=== PATIENT | female | born 1990 | race Caucasian/White ===

== ENCOUNTER 2017-11-29 14:37 | Emergency (ER) | payer OTHER ==
[~2017-11-29] VITALS: Ht 160 cm; Wt 64.4 kg
[~2017-11-29 14:37] MED LIST: CARAFATE1 GM/10 ML PO; CITALOPRAM HBR20 MG PO; CITALOPRAM HBR40 MG PO; ESTRADIOL1 MG PO; FAMOTIDINE40 MG PO; LAMOTRIGINE200 MG PO; LORAZEPAM0.5 MG PO; MIRTAZAPINE15 MG PO; NAPROXEN250 MG PO; PANTOPRAZOLE SO40 MG PO; VYVANSE30 MG PO
[2017-11-29 17:33] LABS: BILIRUBIN,URINE NEGATIVE (NEGATIVE); CLARITY,URINE CLEAR (CLEAR); COLOR,URINE YELLOW (YELLOW); KETONES,URINE NEGATIVE (NEGATIVE); LEUKOCYTE ESTERASE ,URINE 2+ (NEGATIVE); NITRITE,URINE NEGATIVE (NEGATIVE); PROTEIN,URINE DIPSTICK NEGATIVE (NEGATIVE); URINE UROBILINOGEN 0.2 mg/dL (0.2 - 1)
[2017-11-29] MEDS ORDERED: NITROFURANTOIN MACROCRYSTALS 100 MG CAP PO ONE (17:45)
[2017-11-29 17:49] LABS: BACTERIA,URINE FEW /HPF; EPITHELIAL CELLS,URINE FEW /LPF
[2017-11-29 18:54] VITALS: BP 101/70
== END 2017-11-29 19:06 | disposition home or self-care (01) ==
LOC: ER 14:37
DX: B37.3 Candidiasis of vulva and vagina (principal); N30.90 Cystitis, unspecified without hematuria
CPT/HCPCS: 81001; 99283

== ENCOUNTER 2017-12-09 15:10 | Emergency (ER) | payer OTHER ==
[~2017-12-09] VITALS: Ht 160 cm; Wt 64.4 kg
[2017-12-09] MEDS ORDERED: SODIUM CHLORIDE 0.9% 1000ML 1,000 ML IV STA ×2 (15:12→17:41)
[2017-12-09] MEDS ORDERED: MORPHINE SULFATE 4 MG/ML SYR IV STA (15:12)
[2017-12-09] MEDS ORDERED: ONDANSETRON HCL INJ 2 MG/ML VIAL IV SCH (15:12)
--- OUTSIDE RECORDS SUMMARY | 2017-12-09 15:13 | XMS REPORT | Continuity of Care Document ---
Author Author [facility] Organization [facility] Address [address] [place] [address] Phone Unavailable Care Team Providers Care Ict Programmer Name Role Phone SEMAJ AUSTIN MD PCP Insurance Providers Guarantor Mona Rose Address [address] [place] [address] Email [email or web address] Payer [facility] Policy Number [id number] Subscriber's Name Mona Rose Relationship 18 Self / Same As Patient Group Number [id number] Group Name UNEMPLOYED Effective Date 17 Expiration Date 15 Advance Directives Directive Response Recorded Date/Time Does the patient have an advance directive? No 11/29/17 3:41pm If yes, [facility]? No 02/20/14 9:53pm If not on file with [facility] will patient provide a copy? No 11/29/17 3:41pm Do you have a Directive to Physician? No 11/29/17 3:41pm Do you have a Medical Power of Roller Inspector And Mender? No 11/29/17 3:41pm Do you have an out of hospital Do Not Resuscitate Order? No 11/29/17 3:41pm Do you have any special needs we should be aware of? No 11/29/17 3:41pm Do you have a support person here with you today? Yes 03/08/18 3:41pm Did patient receive Notice of Privacy Practices? Yes 11/29/17 3:41pm Did patient receive patient rights and responsibilities? Yes 11/29/17 3:41pm Problems Medical Problem Onset Date Status Upper GI bleed Unknown Medications Current Home Medications Medication Dose Units Route Directions Days Qty Instructions Start Date Citalopram Hydrobromide (Citalopram Hbr) 40 Mg Tablet 40 Mg Oral Daily Estradiol 1 Mg Tab 2 Mg Oral Daily 30 Tab Lorazepam 0.5 Mg Tablet 0.5 Mg Oral Twice A Day Mirtazapine 15 Mg Tab 15 Mg Oral Bedtime Pantoprazole Sodium (Protonix) 40 Mg Tablet.dr 40 Mg Oral Daily Sucralfate (Carafate) 1 Gm/10 Ml Oral.susp 1 Gm Oral Twice A Day TAKE EVERY MORNING AND AT BED TIME Past Home Medications Medication Directions Ordered Status Citalopram Hydrobromide (Citalopram Hbr) 20 Mg Tablet, 40 Mg Oral Daily Discontinued Famotidine 40 Mg Tablet, 40 Mg Oral Bedtime Discontinued Lamotrigine 200 Mg Tablet, 200 Mg Oral Twice A Day Discontinued Lisdexamfetamine Dimesylate (Vyvanse) 30 Mg Capsule, 30 Mg Oral Daily Discontinued Lorazepam 0.5 Mg Tablet, 0.25 Mg Oral Three Times A Day for Anxiety Discontinued Naproxen 250 Mg Tablet, 500 Mg Oral Twice A Day Discontinued Social History Social History Problem Response Recorded Date/Time Onset Date Status Hx Psychiatric Problems Yes 04/04/2017 10:11pm Not Applicable Not Applicable Hx Eating Disorder No 04/04/2017 10:11pm Not Applicable Not Applicable Hx Substance Use Disorder No 04/04/2017 10:11pm Not Applicable Not Applicable Hx Depression Yes 04/04/2017 10:11pm Not Applicable Not Applicable Hx Alcohol Use No 04/04/2017 10:11pm Not Applicable Not Applicable Hx Substance Use Treatment No 04/04/2017 10:11pm Not Applicable Not Applicable Hx Physical Abuse No 04/04/2017 10:11pm Not Applicable Not Applicable Smoking Status Start Date Stop Date Former smoker Hospital Discharge Instructions No hospital discharge instruction information available. Plan of Care Discharge Date 11/29/17 7:06pm Disposition HOME, SELF-CARE Condition at Discharge Stable Instructions/Education Provided Abdominal Pain - Adult Urinary Tract Infection - Women Yeast Infection Forms Provided Work/School Excuse Prescriptions See Medication Section Referrals SEMAJ AUSTIN MD Address: [address] [place] [id number] Additional Instructions/Education Please take medication as directed. Keep December 13 appointment with your Gynocologist. Return to the ER for any shortness of breath, chest pain, abdominal pain, or any new concerns. Functional Status No functional status information available. Allergies, Adverse Reactions, Alerts Allergen Type Severity Reaction Status Last Updated Guaifenesin Allergy Unknown Active 11/29/17 Immunizations No immunization information available. Vital Signs Acute Vital Signs Vital Response Date/Time Temperature (Fahrenheit) 98.1 degrees F (97.6 - 99.5) 11/29/2017 6:54pm Pulse Pulse Rate (adult) 89 bpm (60 - 90) 11/29/2017 6:54pm Respiratory Rate 18 bpm (12 - 24) 11/29/2017 6:54pm Blood Pressure 101/70 mm Hg 11/29/2017 6:54pm Height 5 ft 3 in 11/29/2017 3:02pm Weight 142 lb 11/29/2017 3:02pm Body Mass Index 25.2 kg/m^2 11/29/2017 3:02pm Results Laboratory Results Test Name Result Units Flags Reference Collection Date/Time Result Date/ Time Comments White Blood Count 3.21 x10e3/uL L 4.8-10.8 04/07/2017 7:04/07/2017 7:46am Red Blood Count 3.88 x10e6/uL 3.6-5.1 04/07/2017 7:04/07/2017 7: 46am Hemoglobin 10.6 g/dL L 12.0-16.0 04/07/2017 7:04/07/2017 7:46am Hematocrit 32.2 % L 34.2-44.1 04/07/2017 7:04/07/2017 7:46am Mean Corpuscular Volume 83.0 fL 81-99 04/07/2017 7:04/07/2017 7: 46am Mean Corpuscular Hemoglobin 27.3 pg L 28-32 04/07/2017 7:2016 7:46am Mean Corpuscular Hemoglobin Concent 32.9 g/dL 31-35 04/07/2017 7:04/07/2017 7:46am Red Cell Distribution Width 14.5 % H 11.7-14.4 04/07/2017 7:2016 7:46am Platelet Count 231 x10e3/uL 140-360 04/07/2017 7:04/07/2017 7: 46am Neutrophils (%) (Auto) 49.6 % 38.7-80.0 04/07/2017 7:04/07/2017 7: 46am Lymphocytes (%) (Auto) 30.5 % 18.0-39.1 04/07/2017 7:04/07/2017 7: 46am Monocytes (%) (Auto) 14.6 % H 4.4-11.3 04/07/2017 7:04/07/2017 7: 46am Eosinophils (%) (Auto) 4.7 % 0.0-6.0 04/07/2017 7:04/07/2017 7: 46am Basophils (%) (Auto) 0.6 % 0.0-1.0 04/07/2017 7:04/07/2017 7:46am IM GRANULOCYTES % 0.0 % 0.0-1.0 04/07/2017 7:04/07/2017 7:46am Neutrophils # (Auto) 1.6 L 2.1-6.9 04/07/2017 7:04/07/2017 7: 46am Lymphocytes # (Auto) 1.0 1.0-3.2 04/07/2017 7:04/07/2017 7:46am Monocytes # (Auto) 0.5 0.2-0.8 04/07/2017 7:04/07/2017 7:46am Eosinophils # (Auto) 0.2 0.0-0.4 04/07/2017 7:04/07/2017 7:46am Basophils # (Auto) 0.0 0.0-0.1 04/07/2017 7:04/07/2017 7:46am Absolute Immature Granulocyte (auto 0 x10e3/uL 0-0.1 04/07/2017 7:04/07/2017 7:46am Prothrombin Time 13.1 seconds 11.9-14.5 04/04/2017 5:17pm 04/04/2017 6: 20pm Prothromb Time International Ratio 0.95 04/04/2017 5:2016 6:20pm Oral Anticoagulant Therapy INR Values: 1. Low Intensity Therapy 1.5 - 2.0 2. Moderate Intensity Therapy 2.0 - 3.0 3. High Intensity Therapy(1) 2.5 - 3.5 4. High Intensity Therapy(2) 3.0 - 4.0 5. Panic Value INR > 5.0 Activated Partial Thromboplast Time 31.7 seconds 23.8-35.5 04/04/2017 5: 17pm 04/04/2017 6:20pm Sodium Level 140 mmol/L 136-145 04/07/2017 7:04/07/2017 8:14am Potassium Level 3.9 mmol/L 3.5-5.1 04/07/2017 7:04/07/2017 8:14am Chloride Level 104 mmol/L 98-107 04/07/2017 7:04/07/2017 8:14am Carbon Dioxide Level 28 mmol/L 22-29 04/07/2017 7:04/07/2017 8: 14am Anion Gap 11.9 mmol/L 8-04/07/2017 7:04/07/2017 8:14am Blood Urea Nitrogen 7 mg/dL 7-04/07/2017 7:04/07/2017 8:14am Creatinine 0.72 mg/dL 0.57-1.11 04/07/2017 7:04/07/2017 8:14am BUN/Creatinine Ratio 10 6-04/07/2017 7:04/07/2017 8:14am Estimat Glomerular Filtration Rate > 60 ML/MIN 60- 04/07/2017 7: 8:14am Ranges were taken from the National Kidney Disease Education Program and the National Kidney Foundation literature. Reference ranges: 60 or greater: Normal 16-59 (for 3 consecutive months): Chronic kidney disease 15 or less: Kidney failure Glucose Level 88 mg/dL 74-118 04/07/2017 7:04/07/2017 8:14am Calcium Level 9.3 mg/dL 8.4-10.2 04/07/2017 7:19am 04/07/2017 8:14am Iron Level 27 ug/dL L 50-170 04/05/2017 9:1404/05/2017 10:14am Total Iron Binding Capacity 384 ug/dL 261-478 04/05/2017 9:14am 2016 10:14am Percent Iron Saturation 7 % L 15-50 04/05/2017 9:14am 04/05/2017 10: 14am Transferrin 274 mg/dL 180-382 04/05/2017 9:1404/05/2017 10:14am Total Bilirubin 0.3 mg/dL 0.2-1.2 04/04/2017 5:17pm 04/04/2017 6:16pm Aspartate Amino Transf (AST/SGOT) 17 IU/L 5-34 04/04/2017 5:2016 6:16pm Alanine Aminotransferase (ALT/SGPT) 16 IU/L 0-55 04/04/2017 5:08/2017 6:16pm Total Protein 6.7 g/dL 6.5-8.1 04/04/2017 5:04/04/2017 6:16pm Albumin 3.7 g/dL 3.5-5.0 04/04/2017 5:04/04/2017 6:16pm Globulin 3.0 g/dL 2.3-3.5 04/04/2017 5:pm 04/04/2017 6:16pm Albumin/Globulin Ratio 1.2 0.8-2.0 04/04/2017 5:04/04/2017 6: 16pm Alkaline Phosphatase 137 IU/L 40-150 04/04/2017 5:04/04/2017 6: 16pm Amylase Level 49 U/L 25-125 04/04/2017 5:04/04/2017 6:16pm Lipase 10 U/L 8-78 04/04/2017 5:pm 04/04/2017 6:16pm Vitamin B12 Level 312 pg/mL 213-816 04/05/2017 9:14am 04/05/2017 10: 54am Folate 19.1 ng/mL H 7.0-15.4 04/05/2017 9:1404/05/2017 10:54am Thyroid Stimulating Hormone (TSH) 0.644 uIU/mL 0.350-4.940 04/05/2017 9: 14am 04/05/2017 10:22am Rapid Plasma Reagin Non Reactive Non Reactive 04/04/2017 5:17pm 04/06 6:21am Performed at: - [facility] [address] [id number] [employer] Architect: Manfred Andrade MD, Phone: [phone] Urine Color YELLOW YELLOW 11/29/2017 3:09pm 11/29/2017 5:36pm Urine Clarity CLEAR CLEAR 11/29/2017 3:09pm 11/29/2017 5:36pm Urine Specific [place] 1.020 1.010-1.025 11/29/2017 3:09pm 2017 5:36pm Urine pH 6 5 - 7 11/29/2017 3:09pm 11/29/2017 5:36pm Urine Leukocyte Esterase 2+ H NEGATIVE 11/29/2017 3:09pm 11/29/2017 5: 36pm Urine Nitrite NEGATIVE NEGATIVE 11/29/2017 3:09pm 11/29/2017 5:36pm Urine Protein NEGATIVE NEGATIVE 11/29/2017 3:09pm 11/29/2017 5:36pm Urine Glucose (UA) NEGATIVE NEGATIVE 11/29/2017 3:09pm 11/29/2017 5: 36pm Urine Ketones NEGATIVE NEGATIVE 11/29/2017 3:09pm 11/29/2017 5:36pm Urine Urobilinogen 0.2 mg/dL 0.2 - 1 11/29/2017 3:09pm 11/29/2017 5: 36pm Urine Bilirubin NEGATIVE NEGATIVE 11/29/2017 3:09pm 11/29/2017 5: 36pm Urine Blood NEGATIVE NEGATIVE 11/29/2017 3:09pm 11/29/2017 5:36pm Urine WBC 6-10 /HPF H 0-5 11/29/2017 3:09pm 11/29/2017 5:49pm Urine RBC NONE /HPF 0-5 11/29/2017 3:09pm 11/29/2017 5:49pm Urine Bacteria FEW /HPF NONE 11/29/2017 3:09pm 11/29/2017 5:49pm Urine Epithelial Cells FEW /LPF NONE 11/29/2017 3:09pm 11/29/2017 5: 49pm Microbiology Results Procedure Source Organism/Result Collection Date/Time Result Date/Time Result Status Blood Culture Blood NO GROWTH AFTER 5 DAYS, FINAL REPORT 04/04/2017 7:00pm 04/09/2017 7:15pm Final Blood Culture Blood STAPHYLOCOCCUS SP COAG NEG 04/04/2017 6:45pm 2016 8:42am Final Procedures Procedure Status Date Provider(s) EXCISION OF STOMACH, ENDO, DIAGN Completed 04/05/17 DOLLY KIMBALL MD US abdomen complete Active 04/04/17 SEMAJ AUSTIN MD X-ray of chest, two views Active 04/05/17 SEMAJ AUSTIN MD Computed tomography of abdomen and pelvis with contrast Active 04/04/17 ELIZABETH BRIONES MD Encounters Encounter Location Arrival/Admit Date Discharge/Depart Date Attending Provider Departed Emergency Room [facility] 11/29/17 2:37pm 7:06pm ROSANGELA HAIRSTON Discharged Inpatient [facility] 04/05/17 8:35am 04/07/17 1:00pm SEMAJ AUSTIN MD
[2017-12-09] MEDS ORDERED: ACETAMINOPHEN 1000 MG/100 ML IV STA (15:35)
[2017-12-09] MEDS ORDERED: MORPHINE SULFATE 2 MG/ML SYR ONE (15:43)
[2017-12-09 15:52] LABS: BASOPHILS % 0.5 % (0.0-1.0); EOSINOPHILS # (AUTO) 0.1 (0.0-0.4); EOSINOPHILS % 1.4 % (0.0-6.0); HEMATOCRIT 33.4 % (34.2-44.1); HEMOGLOBIN 11.5 g/dL (12.0-16.0); LYMPHOCYTES # (AUTO) 0.5 (1.0-3.2); LYMPHOCYTES % 7.7 % (18.0-39.1); MEAN CORPUSCULAR HEMOGLOBIN 28.4 pg (28-32); MEAN CORPUSCULAR HGB CONC 34.4 g/dL (31-35); MEAN CORPUSCULAR VOLUME 82.5 fL (81-99); MONOCYTES # (AUTO) 0.4 (0.2-0.8); NEUTROPHILS # (AUTO) 5.5 (2.1-6.9); NEUTROPHILS % 84.2 % (38.7-80.0); PLATELET COUNT 271 x10e3/uL (140-360); RED BLOOD COUNT 4.05 x10e6/uL (3.6-5.1)
[2017-12-09 16:00] LABS: BILIRUBIN,URINE NEGATIVE (NEGATIVE); KETONES,URINE NEGATIVE (NEGATIVE); LEUKOCYTE ESTERASE ,URINE NEGATIVE (NEGATIVE); NITRITE,URINE NEGATIVE (NEGATIVE); PROTEIN,URINE DIPSTICK NEGATIVE (NEGATIVE); URINE UROBILINOGEN 0.2 mg/dL (0.2 - 1)
[2017-12-09 16:01] LABS: CLARITY,URINE HAZY (CLEAR); COLOR,URINE YELLOW (YELLOW)
[2017-12-09 16:06] LABS: BACTERIA,URINE FEW /HPF; EPITHELIAL CELLS,URINE FEW /LPF; RBC,URINE 0-5 /HPF (0-5); WBC,URINE (MAN) 0-5 /HPF (0-5)
[2017-12-09 16:15] LABS: ALANINE AMINOTRANSFERASE 27 IU/L (0-55); ALBUMIN 3.9 g/dL (3.5-5.0); ALBUMIN/GLOBULIN RATIO 1.2 (0.8-2.0); ALKALINE PHOSPHATASE 148 IU/L (40-150); ANION GAP 12.7 mmol/L (8-16); BLOOD UREA NITROGEN 6 mg/dL (7-26); BUN/CREATININE RATIO 9 (6-25); CARBON DIOXIDE 24 mmol/L (22-29); CHLORIDE 104 mmol/L (98-107); CREATINE KINASE 72 IU/L (29-168); CREATININE, SERUM 0.67 mg/dL (0.57-1.11); EST GLOMERULAR FILTRATION RATE > 60 ML/MIN (60-); GLUCOSE 95 mg/dL (74-118); LIPASE 7 U/L (8-78); POTASSIUM 3.7 mmol/L (3.5-5.1); SODIUM 137 mmol/L (136-145)
--- NOTE | 2017-12-09 16:42 | Diagnostic Imaging Report ---
Exam: Head CT without contrast History: Multiple seizures Comparison studies: Head CT 02/28/2016 Technique: Axial images were obtained from the skull base to the vertex. Coronal and sagittal images reconstructed from the axial data. Intravenous contrast: None Findings: Scalp: No abnormalities. Bones: No fractures, blastic or lytic lesions. Brain sulci: Appropriate for age. Ventricles: Normal in size and configuration. No hydrocephalus. Extra-axial spaces: No masses, no fluid collection. Parenchyma: No abnormal densities. No masses, acute hemorrhage, acute or chronic vascular insults. Sellar/suprasellar region: No abnormalities. Craniocervical junction: Patent foramen magnum. No Chiari one malformation. IMPRESSION: 1. Acute abnormalities. 2. No changes from the previous head CT of 02/28/2016. Signed by: Dr. Rao Paulino M.D. on 12/09/2017 4:38 PM
--- NOTE | 2017-12-09 17:25 | Diagnostic Imaging Report ---
PELVIS AP 1-2 VIEWS - 2 views HISTORY: Pain COMPARISON: None available. FINDINGS: Bones: No acute displaced fracture. Osseous alignment is within normal limits. Joints: The joint spaces are well-maintained. Soft tissues: The soft tissues appear unremarkable. IMPRESSION: No acute radiographic abnormality. Signed by: Dr. Oli Roger MD on 12/09/2017 5:22 PM
--- NOTE | 2017-12-09 17:27 | Diagnostic Imaging Report ---
SACRUM COCCYX - 3 views HISTORY: Pain COMPARISON: None available. FINDINGS: See impression. IMPRESSION: Limited evaluation on the frontal views due to overlying bowel gas. No definite evidence of acute displaced fracture of the sacrum/coccyx. Degenerative changes of SI joints. Signed by: Dr. Oli Roger MD on 12/09/2017 5:23 PM
--- NOTE | 2017-12-09 17:28 | Diagnostic Imaging Report ---
EXAMINATION: CHEST 2 VIEWS INDICATION: Fall. \S\ORDER PLACED BY MD \[id number] \S\[id number] \S\Y COMPARISON: 04/05/2017 FINDINGS: PA and lateral views TUBES and LINES: None. LUNGS: Lungs are well inflated. Lungs are clear. There is no evidence of pneumonia or pulmonary edema. PLEURA: No pleural effusion or pneumothorax. HEART AND MEDIASTINUM: The cardiomediastinal silhouette is unremarkable. BONES AND SOFT TISSUES: No acute osseous lesion. Soft tissues are unremarkable. UPPER ABDOMEN: No free air under the diaphragm. IMPRESSION: No acute thoracic abnormality. Signed by: Dr. Oli Roger MD on 12/09/2017 5:25 PM
[2017-12-09 19:13] VITALS: BP 97/61
== END 2017-12-09 19:10 | disposition home or self-care (01) ==
LOC: ER 15:10
DX: R50.9 Fever, unspecified (principal); G40.409 Other generalized epilepsy and epileptic syndromes, not intractable, without status epilepticus; K21.9 Gastro-esophageal reflux disease without esophagitis; F32.9 Major depressive disorder, single episode, unspecified
CPT/HCPCS: 36415; 70450; 71046; 72170; 72220; 80053; 81001; 82550; 82553; 83605; 83690; 84484; 85025; 87040; 87086; 87400; 99284; J2270; J2405; J7030

== ENCOUNTER 2019-04-14 16:12 | Emergency (ER) | payer OTHER ==
[~2019-04-14] VITALS: Ht 160 cm; Wt 64.4 kg
--- OUTSIDE RECORDS SUMMARY | 2019-04-14 16:14 | XMS REPORT ---
Author Author [facility] Address Unknown Phone Unavailable Care Team Providers Care Temperature Control Inspector Name Role Phone Wendy COOL Unavailable Unavailable Problems This patient has no known problems. Allergies, Adverse Reactions, Alerts This patient has no known allergies or adverse reactions. Medications This patient has no known medications. Results Test Description Test Time Test Comments Text Results Atomic Results Result Comments CHEST 2 VIEWS [place] [address] Patient Name: MARÍA ELENA ROSE MR #: [id number] : 1990 Age/Sex: 27/F Req #: [id number] Adm Physician: Ordered by: DIPIKA VELIZ TUBE FILLER Report #: [id number] Location: ER Room/Bed: Procedure: [id number] DX/CHEST 2 VIEWS Exam Date: 12/09/17 Exam Time: 1640 REPORT STATUS: Signed EXAMINATION: CHEST 2 VIEWS INDICATION: Fall. COMPARISON: 04/05/2017 FINDINGS: PA and lateral views TUBES and LINES: None. LUNGS: Lungs are well inflated. Lungs are clear. There is no evidence of pneumonia or pulmonary edema. PLEURA: No pleural effusion or pneumothorax. HEART AND MEDIASTINUM: The cardiomediastinal silhouette is unremarkable. BONES AND SOFT TISSUES: No acute osseous lesion. Soft tissues are unremarkable. UPPER ABDOMEN: No free air under the diaphragm. IMPRESSION: No acute thoracic abnormality. Signed by: Dr. Oli Gardner MD on 12/09/2017 5:25 PM Dictated By: OLI GARDNER MD 24 Transcribed By: HALINA on 12/09/171724 COPY TO: DIPIKA VELIZ TUBE FILLER CT BRAIN WO [place] [address] Patient Name: MARÍA ELENA ROSE MR #: [id number] : 1990 Age/Sex: 27/F Req #: [id number] Adm Physician: Ordered by: DIPIKA VELIZ TUBE FILLER Report #: [id number] Location: ER Room/Bed: Procedure: [id number] CT/CT BRAIN WO Exam Date: Exam Time: REPORT STATUS: Signed Exam: Head CT without contrast History: Multiple seizures Comparison studies: Head CT 02/28/2016 Technique: Axial images were obtained from the skull base to the vertex. Coronal and sagittal images reconstructed from the axial data. Intravenous contrast: None Findings: Scalp: No abnormalities. Bones: No fractures, blastic or lytic lesions. Brain sulci: Appropriate for age. Ventricles: Normal in size and configuration. No hydrocephalus. Extra-axial spaces: No masses, no fluid collection. Parenchyma: No abnormal densities. No masses, acute hemorrhage, acute or chronic vascular insults. Sellar/suprasellar region: No abnormalities. Craniocervical junction: Patent foramen magnum. No Chiari one malformation. IMPRESSION: 1. Acute abnormalities. 2. No changes from the previous head CT of 02/28/2016. Signed by: Dr. Flash Paulino M.D. on 12/09/2017 4:38 PM Dictated By: FLASH PAULINO MD 37 Transcribed By: HALINA on 12/09/171637 COPY TO: DIPIKA VELIZ TUBE FILLER PELVIS AP 1-2 VIEWS [place] [id number] [place] [address] Patient Name: MARÍA ELENA ROSE MR #: [id number] : 1990 Age/Sex: 27/F Req #: [id number] Adm Physician: Ordered by: DIPIKA VELIZ TUBE FILLER Report #: [id number] Location: ER Room/Bed: Procedure: [id number] DX/PELVIS AP 1-2 VIEWS Exam Date: 12/09/17 Exam Time: 1640 REPORT STATUS: Signed PELVIS AP 1-2 VIEWS - 2 views HISTORY: Pain COMPARISON: None available. FINDINGS: Bones: No acute displaced fracture. Osseous alignment is within normal limits. Joints: The joint spaces are well-maintained. Soft tissues: The soft tissues appear unremarkable. IMPRESSION: No acute radiographic abnormality. Signed by: Dr. Oli Gardner MD on 12/09/2017 5:22 PM Dictated By: OLI GARDNER MD 21 Transcribed By: HALINA on 12/09/171721 COPY TO: DIPIKA VELIZ TUBE FILLER SACRUM COCCYX [place] [id number] [place] [address] Patient Name: MARÍA ELENA ROSE MR #: [id number] : 1990 Age/Sex: 27/F Req #: [id number] Adm Physician: Ordered by: DIPIKA VELIZ TUBE FILLER Report #: [id number] Location: ER Room/Bed: Procedure: [id number] DX/SACRUM COCCYX Exam Date: 12/09/17 Exam Time: 1640 REPORT STATUS: Signed SACRUM COCCYX - 3 views HISTORY: Pain COMPARISON: None available. FINDINGS: See impression. IMPRESSION: Limited evaluation on the frontal views due to overlying bowel gas. No definite evidence of acute di splaced fracture of the sacrum/coccyx. Degenerative changes of SI joints. Signed by: Dr. Oli Gardner MD on 12/09/2017 5:23 PM Dictated By: OLI GARDNER MD 22 Transcribed By: HALINA on 12/09/171722 COPY TO: DIPIKA VELIZ NP
[2019-04-14 21:36] LABS: BILIRUBIN,URINE NEGATIVE (NEGATIVE); CLARITY,URINE SL CLOUDY (CLEAR); COLOR,URINE YELLOW (YELLOW); KETONES,URINE NEGATIVE (NEGATIVE); LEUKOCYTE ESTERASE ,URINE NEGATIVE (NEGATIVE); NITRITE,URINE NEGATIVE (NEGATIVE); PROTEIN,URINE DIPSTICK NEGATIVE (NEGATIVE); URINE UROBILINOGEN 0.2 mg/dL (0.2 - 1)
[2019-04-14 21:48] LABS: BACTERIA,URINE RARE /HPF
[2019-04-14 21:49] LABS: EPITHELIAL CELLS,URINE FEW /LPF
[2019-04-15 01:06] VITALS: BP 122/74
== END 2019-04-14 22:10 | disposition home or self-care (01) ==
LOC: ER 16:12
DX: N93.8 Other specified abnormal uterine and vaginal bleeding (principal); R10.30 Lower abdominal pain, unspecified; F41.9 Anxiety disorder, unspecified; G40.909 Epilepsy, unspecified, not intractable, without status epilepticus; K21.9 Gastro-esophageal reflux disease without esophagitis; F32.9 Major depressive disorder, single episode, unspecified
CPT/HCPCS: 81001; 99282